=== PATIENT | male | born 1955 | race Hispanic/Latino ===

== ENCOUNTER 2018-06-23 14:04 | Emergency (ER) | payer BC ==
[~2018-06-23 14:04] MED LIST: AEC81 PO; AMLO1TAB35 PO; CYAN10009 PO; FISH1CAP63 PO; IRON PO; LEVO25TA54 PO; METF500T7 PO; METO-391 PO; SIMV20TA6 PO
[2018-06-23] MEDS ORDERED: LORAZEPAM 2 MG/ML 1 ML VIAL ONE (15:01)
[2018-06-23 15:22] LABS: BASOPHILS % (AUTO) 1.3 % (0.0-5.0); EOSINOPHILS % (AUTO) 1.2 % (0.0-8.0); HEMATOCRIT 36.5 % (42-54); LYMPHOCYTES % (AUTO) 31.7 % (21.0-51.0); MEAN CORPUSCULAR HEMOGLOBIN 30.8 pg (27.0-33.0); MEAN CORPUSCULAR HGB CONC 34.1 g/dL (32.0-36.0); MEAN CORPUSCULAR VOLUME 90.3 fL (79-99); MONOCYTES % (AUTO) 7.1 % (3.0-13.0); NEUTROPHILS % (AUTO) 58.7 % (40.0-77.0); PLATELET COUNT (AUTO) 245 K/uL (130-400); RED BLOOD CELL COUNT(AUTO) 4.04 MIL/uL (4.50-6.20); RED CELL DISTRIBUTION WIDTH 13.5 % (11.0-15.5); WHITE BLOOD COUNT (AUTO) 8.9 K/uL (4.8-10.8)
[2018-06-23 15:48] LABS: CREATININE 0.9 mg/dL (0.5-1.5); POTASSIUM 3.7 mmol/L (3.5-5.1)
[2018-06-23 15:53] LABS: ALBUMIN 4.3 g/dL (3.5-5.0); BILIRUBIN,TOTAL 0.4 mg/dL (0.2-1.0); TOTAL PROTEIN, SERUM 8.1 g/dL (6.0-8.3)
== END 2018-06-23 16:30 | disposition home or self-care (01) ==
LOC: EDH 14:04
DX: F41.1 Generalized anxiety disorder (principal); I10 Essential (primary) hypertension; E78.5 Hyperlipidemia, unspecified; E07.9 Disorder of thyroid, unspecified; E11.9 Type 2 diabetes mellitus without complications
CPT/HCPCS: 36415; 80053; 84484; 85025; 93005; 96374; 99285; J2060

== ENCOUNTER 2018-07-01 08:00 | Observation (INO) | payer BC ==
[~2018-07-01] VITALS: Ht 165.1 cm; Wt 66.7 kg
[2018-07-01 09:20] LABS: BASOPHILS % (AUTO) 0.5 % (0.0-5.0); HEMATOCRIT 36.1 % (42-54); LYMPHOCYTES % (AUTO) 18.4 % (21.0-51.0); MEAN CORPUSCULAR HEMOGLOBIN 30.3 pg (27.0-33.0); MEAN CORPUSCULAR HGB CONC 33.7 g/dL (32.0-36.0); NEUTROPHILS % (AUTO) 72.1 % (40.0-77.0); PLATELET COUNT (AUTO) 202 K/uL (130-400); RED BLOOD CELL COUNT(AUTO) 4.01 MIL/uL (4.50-6.20); RED CELL DISTRIBUTION WIDTH 13.2 % (11.0-15.5); WHITE BLOOD COUNT (AUTO) 9.4 K/uL (4.8-10.8)
[2018-07-01 09:32] LABS: CREATININE 0.9 mg/dL (0.5-1.5); POTASSIUM 3.5 mmol/L (3.5-5.1)
[2018-07-01 09:36] LABS: ALBUMIN 3.3 g/dL (3.5-5.0); BILIRUBIN,TOTAL 0.5 mg/dL (0.2-1.0); TOTAL PROTEIN, SERUM 7.1 g/dL (6.0-8.3)
[2018-07-01] MEDS ORDERED: ONDANSETRON HCL 4 MG/2 ML VIAL ONE (09:40)
[2018-07-01] MEDS ORDERED: MORPHINE SULFATE 4 MG/1ML SYG ONE (09:40)
[2018-07-01 10:18] LABS: APPEARANCE,URINE Clear (CLEAR); BILIRUBIN,URINE Negative (NEGATIVE); COLOR,URINE Dark Yellow (YELLOW); GLUCOSE, URINE (UA) Negative (NEGATIVE); KETONES,URINE Trace mg/dL (NEGATIVE); LEUKOCYTE ESTERASE ,URINE Negative (NEGATIVE); NITRATE,URINE Negative (NEGATIVE); OCCULT BLOOD,URINE Negative (NEGATIVE); PROTEIN,URINE POS 1+ (NEGATIVE)
[2018-07-01 10:33] LABS: BACTERIA,URINE None Seen /HPF (None Seen); RBC,URINE 0-1 /HPF (0-1); SQUAMOUS EPITHELIAL CELL,UR 0-2 /HPF (0-2); WBC,URINE 0-1 /HPF (0-1)
[2018-07-01] MEDS ORDERED: ONDANSETRON HCL 4 MG/2 ML VIAL IVP PRN (11:45)
[2018-07-01] MEDS ORDERED: SODIUM CHLORIDE 0.9% 10 ML VIAL IVP PRN (11:45)
[2018-07-01] MEDS ORDERED: MORPHINE SULFATE 2 MG/ML 1ML SYG IVP PRN (11:45)
[2018-07-01] MEDS ORDERED: CLOP75TA32 PO (15:03)
[2018-07-01] MEDS ORDERED: LEVO50TA11 PO (15:03)
[2018-07-01 15:06] VITALS: BP 113/53
[2018-07-01] MEDS ORDERED: ACETAMINOPHEN 325 MG TAB ONE (15:16)
[2018-07-01] MEDS ORDERED: MORPHINE SULFATE 2 MG/ML 1ML SYG ONE ×2 (17:16→22:26)
[2018-07-01 23:00] VITALS: BP 136/70
--- NOTE | 2018-07-01 23:00 | NUR ---
ADMISSION ASSESSMENT Pt brought up from ER, alert and oriented x 4, c/o pain to lower back that worsens upon changing positions. Pt has patent IV to right forearm. Morphine given in ER, pt states he has little relief from pain medication. Lungs clear, bowel sounds present x 4 quadrants, pt denies weakness/tingling to extremities. Will continue to monitor
[2018-07-02 04:45] VITALS: BP 117/65
[2018-07-02 07:30] VITALS: BP 127/66
[2018-07-02 11:30] VITALS: BP 137/76
[2018-07-02 16:00] VITALS: BP 137/73
[2018-07-02] MEDS: LACTULOSE 20 GM/30 ML UDCUP PO SCH ×2 (17:45→20:01)
[2018-07-02] MEDS ORDERED: LACTULOSE 20 GM/30 ML UDCUP ONE (17:51)
[2018-07-02] MEDS ORDERED: METHYLPREDNISOLONE SOD SUCC 40MG/ML 1ML ONE (17:52)
[2018-07-02] MEDS: METHYLPREDNISOLONE SOD SUCC 40MG/ML 1ML IVP SCH ×2 (18:00→23:55)
[2018-07-02] MEDS: TRAMADOL HCL 50 MG TABLET PO PRN ×2 (20:01→23:56)
[2018-07-02 21:27] VITALS: BP 129/72
[2018-07-02 23:48] VITALS: BP 113/58
[2018-07-03] MEDS ORDERED: HYDROMORPHONE HCL 0.5 MG/0.5 ML ML IVP PRN (01:00)
[2018-07-03 04:00] VITALS: BP 100/63
[2018-07-03] MEDS: METHYLPREDNISOLONE SOD SUCC 40MG/ML 1ML IVP SCH ×2 (06:13→12:34)
[2018-07-03] MEDS ORDERED: LACTULOSE 20 GM/30 ML UDCUP PO PRN (06:15)
[2018-07-03 07:30] VITALS: BP 125/68
[2018-07-03] MEDS ORDERED: HYDROMORPHONE 1 MG/1 ML AMP ONE (09:02)
[2018-07-03 11:00] VITALS: BP 98/59
[2018-07-03] MEDS ORDERED: INSULIN HUMULIN R 100 UNIT/ML 3ML ONE (12:18)
--- NOTE | 2018-07-03 15:18 | NUR ---
Patient discharged in stable condition. Patients appointment not made by nurse as patient states he will be f/u upon discharge. Pain controlled. IV 20g removed from Right AC. Tolerated well. Discharge instructions given on low back pain, arthritis. No other questions or concerns voiced.
[2018-07-03] MEDS ORDERED: INSULIN HUMULIN R 100 UNIT/ML 3ML SQ SCH (16:30)
== END 2018-07-03 15:25 | disposition home or self-care (01) ==
LOC: EDH 08:00 → EDHIP 11:30 → 4CH 21:51
PROVIDERS: ADMIT Internal Medicine; ATTEND Internal Medicine
DX: M48.061 Spinal stenosis, lumbar region without neurogenic claudication (principal); Z85.71 Personal history of Hodgkin lymphoma; Z90.81 Acquired absence of spleen; Z95.2 Presence of prosthetic heart valve; Z79.899 Other long term (current) drug therapy
CPT/HCPCS: 36415; 72131; 80053; 81001; 82948 ×7; 85025; 96372; 96374; 96376; 97039 ×2; 97116; 97161; 99283; G0378 ×52; G8979; G8980; G8981; G8982; G8983; J1170; J1815; J2270; J2405; J2920 ×4